=== PATIENT | female | born 1965 | race Asian ===

== ENCOUNTER 2022-12-04 21:23 | Emergency (ER) | payer SELFPAY ==
[~2022-12-04] VITALS: Ht 162.6 cm; Wt 54.4 kg
[2022-12-04 22:47] VITALS: BP 129/78
--- NOTE | 2022-12-04 22:57 | NUR ---
XRAY DONE ON LEFT FOOT
[2022-12-04] MEDS ORDERED: MELO15TA13 PO (23:23)
== END 2022-12-04 23:54 | disposition home or self-care (01) ==
LOC: ER 21:23
DX: S93.522A Sprain of metatarsophalangeal joint of left great toe, initial encounter (principal); W22.8XXA Striking against or struck by other objects, initial encounter; Y93.89 Activity, other specified; Y92.89 Other specified places as the place of occurrence of the external cause; Y99.8 Other external cause status
CPT/HCPCS: 73630-TC